=== PATIENT | female | born 1965 | race Caucasian/White ===

== ENCOUNTER 2024-07-13 01:10 | Day surgery (SDC) | payer BC, SELFPAY ==
[2024-07-06 11:28] VITALS: BMI 34.1
--- OUTSIDE RECORDS SUMMARY | 2024-07-13 01:12 | XMS_ITS | Clinical Summary ---
Author Organization [facility] Address [address] [address] Phone Care Team Providers Care Lending Activities Supervisor Name Role Phone Sujata Chau MD Primary Care Provider Social History Tobacco Use Types Packs/Day Years Used Date Smoking Tobacco: Never Assessed Comments Unknown Sex and Gender Information Value Date Recorded Sex Assigned at Not on file Legal Sex Female 12:07 AM CDT Gender Identity Not on file Sexual Orientation Not on file Plan of Treatment Health Maintenance Due Date Last Done Comments Hepatitis C Virus (HCV) Screening 1965 TdaP Immunization 1965 Hepatitis B Immunization (1 of 3 - 19+ 3-dose series) 1984 Pap Smear 1986 Cervical Cancer Screening (CCS) 08/26/1995 HPV/Cotest 08/26/1995 Cologuard 08/26/2015 Immunochemical Fecal Occult Blood 08/26/2015 Mammogram 08/26/2015 Pneumococcal Immunization (5 0+ years) (1 of 1 - PCV) 08/26/2015 Zoster Immunization (1 of 2) 08/26/2015 Colonoscopy 08/05/2023 08/04/2018 Colorectal Cancer Screening 08/05/2023 Influenza Immunization (#1) 2023 SARS-COV-2 Immunization ( season) 2023 Respiratory Syncytial Virus (RSV) Immunization (Adult) (1 - 1-dose 75+ series) 2040 08/04/2018 Meningococcal Immunization (ACWY) Aged Out No longer eligible based on patient's age to complete this topic Pneumococcal Immunization Combined Aged Out No longer eligible based on patient's age to complete this topic Rotavirus Immunization Aged Out No lo nger eligible based on patient's age to complete this topic Procedures Procedure Name Priority Date/Time Associated Diagnosis Comments COLONOSCOPY Routine 08/04/2018 from Last 3 Months or Most Recently Relevant to Health Maintenance Results * COLONOSCOPY (08/04/2018) Robbi Juan Jose Alejandra DO PROCEDURE/MINOR SURGICAL ORDERA BLES Final Result from Last 3 Months or Most Recently Relevant to Health Maintenance Insurance Care Teams Lending Activities Supervisor Relationship Specialty Start Date End Date Sujata Chau MD PCP - General Family Medicine 03/18/18
--- OUTSIDE RECORDS SUMMARY | 2024-07-13 01:12 | XMS_ITS | Encounter Summary ---
Author Organization [facility] Healthcare Address [address] [place] [id number] Care Team Providers Care Medical Support Specialist Name Role Phone Unknown, Notinfile Primary Care Provider Unavail able Encounter Details Date Type Department Care Team (Late st Contact Info) Description 06/22/2024 Results Follow-Up [facility] Medical Group [facility] Care at [address] [phone] Santos Kowalski NP [address] [place] [address] [address] [place] [address] Social History Tobacco Use Types Packs/Day Years Used Date Smoking Tobacco: Never Passive Smoke Exposure: Never Smokeless Tobacco: Never Comments Unknown Sex and Gender Information Value Date Recorded Sex Assigned at Not on file 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 Pt verbalized understanding. * Result Encounter Note - Santos Kowalski NP - 06/22/2024 7:48 AM CDT Please alert patient of negative throat culture. Patient should f/u with PCP if symptoms persist past 10-14 days or worsen at anytime. documented in this encounter Plan of Treatment Not on file documented as of this encounter Visit Diagnoses Not on filedocumented in this encounter Care Teams Medical Support Specialist Relationship Specialty Start Date End Date Unknown, Notinfile PCP - General 06/20/24 documented as of this encounter
--- OUTSIDE RECORDS SUMMARY | 2024-07-13 01:12 | XMS_ITS | Clinical Summary ---
Author Organization [address] Address [address] [place] [id number] Care Team Providers Care Ux Designer Name Role Phone Unknown, Notinfile Primary Care Provider Unavail able Allergies No known active allergies Medications benzonatate (TESSALON) 200 mg capsuleIndicati ons:Acute cough Take 1 capsule (200 mg total) by mouth 3 (three) times a day as needed for cough for up to 7 days 20 capsule 06/20/2024 06/28/19 25 nystatin 100,000 unit/mL suspensionIndic ations:Thrush Take 5 mL (500,000 Units total) by mouth 4 (four) times a day for 7 days Swish in mouth and swallow. 140 mL 06/20/2024 06/28/19 25 Active Problems No known active problems Encounters Date Type Department Care Team Description 06/22/2024 Results Follow-Up [facility] Care at [address] [phone] Santos Kowalski NP 06/20/2024 6:44 PM CDT - 06/20/2024 11:59 PM CDT Hospital Encounter [address] [address] Sore throat Discharge Disposition: Discharge to home or self care 06/20/2024 6:30 PM CDT Office Visit [facility] Care at [address] [phone] Niurka Poon NP Sore throat (Primary Dx); Thrush; Acute cough from Last 3 Months Social History Tobacco Use Types Packs/Day Years Used Date Smoking Tobacco: Never Passive Smoke Exposure: Never Smokeless Tobacco: Never Comments Unknown Sex and Gender Information Value Date Recorded Sex Assigned at Not on file 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 Gender Identity Not on file Sexual Orientation Not on file Obstetrics History Last Filed Vital Signs Vital Sign Reading Time Taken Comments Blood Pressure 137/87 06/20/2024 6:24 PM CDT Pulse 78 06/20/2024 6:24 PM CDT Temperature 36.9 C (98.5 F) 06/20/2024 6:24 PM CDT Respiratory Rate 18 06/20/2024 6:24 PM CDT Oxygen Saturation 98% 06/20/2024 6:24 PM CDT Inhaled Oxygen Concentration - - Weight 94.3 kg (208 lb) 06/20/2024 6:24 PM CDT Height 165.1 cm (5' 5 ) 06/20/2024 6:24 PM CDT Body Mass Index 34.61 06/20/2024 6:24 PM CDT Plan of Treatment Health Maintenance Due Date Last Done Comments Cervical Cancer Screening 1965 Colon Cancer Screening-Colonoscopy 1965 Depression Screening 1965 Hepatitis C Screening 1965 Hepatitis B Screening 08/26/1983 Regular Well Visit/Exam 18-64 08/26/1983 Zoster Vaccine (1 of 2) 08/26/2015 Breast Cancer Screening-Mammogram 01/19/2025 01/20/2024, 01/20/2024, 03/28/2018 DTaP/Tdap/Td Vaccine (3 - Td or Tdap) 01/20/2031 01/20/2021, 12/27/2011 Covid-19 Vaccine Completed 02/17/2024, , 02/18/2021, Additional history exists Influenza Vaccine Completed 02/17/2024, , 01/03/2021, Additional history exists Pneumococcal vaccine <65 Aged Out No longer eligible based on patient's age to complete this topic Procedures Procedure Name Priority Date/Time Associated Diagnosis Comments THROAT CULTURE Routine 06/20/2024 6:44 PM CDT Sore throat POCT RAPID STREP Routine 06/20/2024 6:39 PM CDT Sore throat from Last 3 Months Results * Throat culture Throat (06/20/2024 6:44 PM CDT) Report Final Report: No growth of pathogens. Comment:Testing performed by : [facility], [address], [place]., [address] Throat 06/20/2024 6:44 PM CDT 06/21/2024 6:57 AM CDT Narrative KRISH Mabry 06/22/2024 6:40 AM CDT Testing performed by [facility] Microbiology Laboratory ([phone]). Niurka Poon NP LAB MICROBIOLOGY - GENERAL ORDERABLES Final Result KR[facility] [id number] [facility] [place] [address] * POCT rapid strep A (06/20/2024 6:39 PM CDT) Rapid Strep A, POC Negative Negative Swab 06/20/2024 6:39 PM CDT Niurka Poon NP POINT OF CARE TEST ORDERAB LES Final Result from Last 3 Months Insurance [facility] Care Teams Ux Designer Relationship Specialty Start Date End Date Unknown, Notinfile PCP - General 06/20/24
--- OUTSIDE RECORDS SUMMARY | 2024-07-13 01:12 | XMS_ITS | Clinical Summary ---
Author Organization [facility] Address [address] [place] [address] Care Team Providers Care Associate Financial Representative Name Role Phone Sujata Chau MD Primary Care Provider Source Comments [facility],non-owned Affiliates and Associated Physician Practices is amultiple site organization consisting of ambulatory clinics and hospital sitesin [place], [place], [place] and [place]. This disclosure is being madepursuant to the Care Everywhere program and may not contain all information available regarding this patient. Last updated 17.[facility] Allergies No known active allergies Medications * Be aware that medications may not be up to date on this document. Alwaysverify current medications with the patient. No known medications Encounters Date Type Department Care Team Description 06/09/2024 3:00 PM CDT - 06/09/2024 11:59 PM CDT Hospital Encounter [address] [address] Discharge Disposition: Home or Self Care 06/09/2024 Travel 05/07/2024 10:20 AM FURNITURE MOVER DRIVER - 05/07/2024 11:59 PM FURNITURE MOVER DRIVER Hospital Encounter [address] [address] Brenda Chau MD Discharge Disposition: Home or Self Care 05/07/2024 8:39 AM FURNITURE MOVER DRIVER - 05/07/2024 10:19 AM FURNITURE MOVER DRIVER Hospital Encounter [address] [address] Brenda Chau MD Discharge Disposition: Home or Self Care 05/07/2024 8:38 AM FURNITURE MOVER DRIVER Hospital Encounter [facility] [place] [address] [place] [address] Brenda Chau MD Discharge Disposition: Home or Self Care 05/07/2024 Travel from Last 3 Months Social History Tobacco Use Types Packs/Day Years Used Date Smoking Tobacco: Never Assessed Comments No Sex and Gender Information Value Date Recorded Sex Assigned at Not on file Legal Sex Female 5:19 PM FURNITURE MOVER DRIVER Gender Identity Not on file Sexual Orientation Not on file Last Filed Vital Signs Vital Sign Reading Time Taken Comments Blood Pressure - - Pulse - - Temperature - - Respiratory Rate - - Oxygen Saturation - - Inhaled Oxygen Concentration - - Weight 92.1 kg (203 lb) 01/20/2024 4:15 PM CDT Height 165.1 cm (5' 5 ) 01/20/2024 4:15 PM CDT Body Mass Index 33.78 01/20/2024 4:15 PM CDT Plan of Treatment Health Maintenance Due Date Last Done Comments COLOGUARD (AGES 45-75) - COL ON CA SCREENING 1965 COLON MONITORING 1965 COLONOSCOPY - COLON CA SCREENING 1965 CT COLONOGRAPHY - COLON CA SCREENING 1965 Colorectal Cancer Screening 1965 FIT - COLON CA SCREENING 1965 FLEX SIG - COLON CA SCREENING 1965 LIPID TESTING 1965 PAP SMEAR 1965 HIV SCREENING 1980 HEPATITIS C SCREENING 08/21/1983 DTAP/TDAP/TD VACCINES (1 - Tdap) 1984 HEPATITIS B VACCINE (1 of 3 - 19+ 3-dose series) 1984 PNEUMOCOCCAL VACCINE 50+ (1 of 1 - PCV) 08/26/2015 ZOSTER VACCINE (1 of 2) 08/26/2015 COVID-19 VACCINE (1 - 2023-2 5 season) 2023 DEPRESSION SCREENING 04/01/2024 INFLUENZA VACCINE (Season Ended) 2024 MAMMOGRAM 01/19/2026 01/20/2024, 03/28/2018, 02/08/2017 HIB VACCINE Aged Out No longer eligi ble based on patient's age to complete this topic HPV VACCINE Aged Out No longer eligi ble based on patient's age to complete this topic MENINGOCOCCAL (Group B) VACCINE SHARED DECISION-MAKING Aged Out No longer eligible based on patient's age to complete this topic MENINGOCOCCAL GROUPS A/C/Y/W VACCINE Aged Out No longer eligible b ased on patient's age to complete this topic Medical Devices Implanted Type Area Supervisor Nut Processing Device Identifier Shelf Expiration Date Model / Serial / Lot [employer]omark Ultra Cor Implanted:Qty: 1 on 05/07/2024 by Anitha Avery MD at [facility] Breast 01/30/2027 [id number] / / [id number] Procedures Procedure Name Priority Date/Time Associated Diagnosis Comments US BREAST LEFT LTD Routine 06/09/2024 4: 12 PM CDT Abnormal ultrasound US BREAST LEFT CYST ASPIRATION Routine 05/07/2024 12:02 PM FURNITURE MOVER DRIVER Abnormal mammogram US BREAST LEFT BIOPSY Routine 05/07/2024 11:54 AM FURNITURE MOVER DRIVER Abnormal mammogram MAMMO LEFT POST CLIP OR WIRE W MARVIN Routine 05/07/2024 10:32 AM FURNITURE MOVER DRIVER Abnormal mammogram PATHOLOGY TISSUE Routine 05/07/2024 9:15 AM FURNITURE MOVER DRIVER Abnormal mammogram MAMMO BILAT SCREENING W MARVIN Routine 01/20/2024 4:14 PM CDT Breast cancer screening by mammogram from Last 3 Months or Most Recently Relevant to Health Maintenance Results * US Breast Left Ltd (06/09/2024 4:12 PM CDT) Anatomical Region Laterality Modality Breast Left Mammography 06/09/2024 3:53 PM CDT Impressions 06/10/2024 7:55 AM CDT IMPRESSION: Interval reaccumulation of the heterogeneous component of a previously characterized complex cystic and solid at the 7:00 position 1 cm from the nipple which is similar in size compared to prebiopsy imaging, now measuring 1.7 x 1.5 x 1.5 cm (previously 1.6 x 1.5 x 1.4 cm). Differential considerations continue to include chronic indolent/sterile abscess. RECOMMENDATION: Given the fact this area continues to be recurrent with multiple biopsies outer this or in the general vicinity of this area demonstrating benign pathology but that suggesting possible chronic indolent hemorrhage/abscess, breast surgery consultation is recommended. Further imaging follow-up and management decisions regarding the subareolar left breast mass to be decided pending breast surgery consultation appointment. The patient is next due for bilateral mammography in December 2024, pending no interval breast changes. OVERALL ASSESSMENT: BI-RADS CATEGORY 2: BENIGN. Dictated and interpreted by Abdulaziz Castro MD (assistant vice president). I, Jenna Lopez DO have personally reviewed and interpreted this examination/study. > Interpreting Provider: Jenna Lopez DO on 06/10/2024 7:55 AM Narrative 06/10/2024 7:55 AM CDT EXAMINATION: US BREAST LEFT COMPLETE DATE: 06/09/2024 HISTORY: Four-week follow-up status post biopsy of a complex cystic and solid yielding columnar cell lesion with microcalcifications in usual ductal hyperplasia. Apocrine cysts with hemorrhage an abscess, small area of abscess could be related to prior hemorrhage/prior history of biopsy. No atypia or malignancy. Of note, the patient has had this region of the breast biopsied several times in the past, all with benign pathology also suggesting possible chronic abscess or hemorrhage (mostly performed at [facility] with pathology reports not available) note is also made that the area significantly decreased in size at the time of biopsy. The patient denies known history of diabetes and is a nonsmoker. Of note, the patient remains asymptomatic in relationship to the mass. COMPARISON: Prior breast imaging studies back to 2017. Correlated with most recent mammogram and ultrasound dated 05/07/2024. TECHNIQUE: Targeted left breast ultrasound of the patient's previous biopsy site at the 7:00 position, 1 cm from the nipple. TISSUE COMPOSITION: Heterogeneous background echotexture. FINDINGS: Redemonstration of a complex cystic and solid mass at the 7:00 position, 1 cm from nipple. Compared to postbiopsy ultrasound there has been reaccumulation of the heterogeneous component of the mass. The mass measures 1.7 x 1.5 x 1.5 cm, previously 1.6 x 1.5 x 1.4 cm on prebiopsy examination. There is suggestion of mild peripheral vascularity. This is not tender to the patient and there is no overlying skin erythema, warmth and the patient denies fever. Sujata Chau MD US ORDERABLES Final Result * US Breast Left Cyst Aspiration (05/07/2024 12:02 PM FURNITURE MOVER DRIVER) Anatomical Region Laterality Modality Breast Left Mammography 05/13/2024 7:26 AM FURNITURE MOVER DRIVER Impressions 05/13/2024 7:31 AM FURNITURE MOVER DRIVER IMPRESSION: Technically successful, uncomplicated ultrasound-guided aspiration performed of a 1 cm cyst in the 10 o'clock position, 4 cm from the nipple of the LEFT breast with complete collapse of the cyst. RECOMMENDATION: Please refer to separate ultrasound biopsy report same day of the left breast 7:[address] Avery discussed the exam findings with the patient at the time of the procedure. > Interpreting Provider: Anitha Avery MD, FACR on 05/13/2024 7:31 AM Narrative 05/13/2024 7:31 AM FURNITURE MOVER DRIVER EXAM: ULTRASOUND-GUIDED CYST ASPIRATION- LEFT BREAST LOCATION: [facility] EXAM DATE: 05/07/2024 HISTORY: 1.1 cm hypoechoic mass in the left breast 10:00 region, 4 cm from nipple. Please refer to separate biopsy report same day. COMPARISON: Mammogram 01/20/2024 and ultrasound 03/19/2024. INTERPRETATION: Preprocedure images were reviewed. The procedure and its risks and benefits were discussed with the patient, including, but not limited to infection and allergy. Written and verbal informed consent was obtained and documented. After confirming the correct breast for aspiration, the breast was marked with a marking pen. The patient was then placed in a supine position on the ultrasound table. Prior to the procedure, a hospital timeout procedure was performed, including verification of the laterality of the breast for aspiration. The 1.1 cm cyst in the 10 o'clock position, 4 cm from the nipple was localized with ultrasound guidance. The breast was cleansed with Chloraprep and draped in a sterile fashion. Using sterile technique and after 4 cc of 1% Lidocaine with Sodium Bicarbonate was given for local anesthesia, the cyst was punctured with a 20-gauge hypodermic needle under ultrasound guidance. 1 cc of clear, colorless fluid was obtained. There was complete collapse of the cyst. The patient tolerated the procedure without incident and left the department in good condition. Estimated blood loss: Minimal A Band-Aid was placed over the skin puncture site. The patient tolerated the procedure without incident and left the department in good condition. The attending physician, Anitha Avery MD, was present for and performed the entire procedure. Sujata Chau MD US ORDERABLES Final Result * US Breast Left Biopsy (05/07/2024 11:54 AM FURNITURE MOVER DRIVER) Anatomical Region Laterality Modality Breast Left Mammography Biopsy specimen, unspecified 05/07/2024 10:37 AM FURNITURE MOVER DRIVER Addenda Addendum by Anitha Avery MD on 05/08/2024 1:35 PM FURNITURE MOVER DRIVER ADDENDUM: PATHOLOGY RESULTS LOCATION: [facility] DATE OF ADDENDUM: 05/08/[address] Sandy Puri from biopsy of the left breast performed by Dr. Avery demonstrates columnar cell lesion with microcalcifications in usual ductal hyperplasia. Apocrine cysts with hemorrhage and abscess. Per discussion with Dr. Puri, small area with neutrophils (abscess) noted and could be related to prior hemorrhage/prior history of biopsy. There is no atypia or malignancy. Of note, at the time of the biopsy patient was asymptomatic with respect to the left breast without signs of infection or abscess. This is a benign lesion. The pathology report is concordant with the imaging findings. Recommendation: 1. Clinical follow-up of patient's left breast to assess for any developing signs of infection. If patient were to develop any erythema, pain, or signs of breast infection, then initiation of antibiotics and breast surgical consultation is recommended. Of note, at the time of the biopsy patient was asymptomatic with respect to the left breast, without signs or symptoms of infection. 2. Pending no interval breast concerns, follow-up left breast ultrasound is recommended in 4 weeks to reassess the biopsy site. Our nurse navigator will notify the patient of the biopsy findings and recommendations. Pathology report available for the referring provider via [employer]. > Interpreting Provider: Anitah Avery MD, FACR on 05/08/2024 1:33 PM Impressions 05/07/2024 11:40 AM FURNITURE MOVER DRIVER IMPRESSION: 1. Technically successful, uncomplicated ultrasound-guided core biopsy performed of a 2.5 cm complex cystic and solid mass in the left breast, 7:00 region, 1 cm from the nipple. Of note, the mass became significantly smaller after the biopsy. Please refer to separate report for left breast cyst aspiration same day. 2. A heart -shaped tissue marker was placed at the biopsy site. The tissue marker is in good position at the biopsy site. 3. Pathology results are pending. We will notify the patients of the pathology findings and recommendations. An addendum will be rendered to this report when the pathology results are made available. Report dictated by Olaf Barnes M.D. (assistant vice president). I, Anitha Avery MD, FACR have personally reviewed and interpreted this examination/study. > Interpreting Provider: Anitha Avery MD, FACR on 05/07/2024 11:40 AM Narrative 05/07/2024 11:40 AM FURNITURE MOVER DRIVER EXAM: 1. ULTRASOUND-GUIDED LEFT BREAST BIOPSY AND 2. POST BIOPSY DIGITAL MAMMOGRAM WITH TOMOSYNTHESIS LEFT BREAST (COMBINED REPORT) LOCATION: [facility] EXAM DATE: 05/07/2024 CLINICAL INFORMATION: Biopsy requested of a 2.5 cm mass in the leftbreast, 7:00 region, 1 cm from the nipple. A 1.6 cm complex solid and cystic mass was noted in the left breast 7:00 region, 1 cm from the nipple on prior ultrasound and is at low suspicion for malignancy. Patient also presenting for aspiration of a 1.1 cm oval anechoic mass in the left breast 7:00 region, 6 cm from the nipple and please refer to that separate report. Patient has remote history of ultrasound-guided core biopsy in the subareolar left breast. COMPARISON: Prior breast imaging studies from [facility], dated 03/19/2024. Also compare with prior outside studies back to 2017. TECHNIQUE AND FINDINGS: Preprocedure images were reviewed. The procedure and its risks and benefits were discussed with the patient, including, but not limited to, bleeding, infection, allergy, and nondiagnostic specimen. Written and verbal informed consent was obtained and documented. After confirming the correct breast for biopsy, the breast was marked with a marking pen. The patient was then placed in a supine position on the ultrasound table. Prior to the procedure a hospital timeout procedure was performed, including verification of the laterality of the breast for biopsy. Ultrasound was performed for location of the lesion. The 2.5 cm mass in the breast, 7:00, 1 cm from the nipple, was localized with ultrasound guidance. The breast was cleansed with ChloraPrep and draped in a sterile fashion. Local anesthesia was given with 4 cc of 1% Lidocaine, buffered with Sodium Bicarbonate within the skin and deeper anesthesia with 14 cc of 1% Lidocaine with Epinephrine, buffered withSodium Bicarbonate. A small skin incision was made with a #11 scalpel blade, and through it a 12-gauge Elevation with an introducer was inserted to the depth of the lesion from a lateral approach. 4 biopsy samples were obtained through the lesion. Of note, the mass cannot significantly smaller than the biopsy and this may represent a complicated fluid structure. A heart -shaped tissue marker was placed at the biopsy site and a post biopsy sonogram demonstrated no evidence for hematoma about the biopsy site. Hemostasis was achieved, and the small wound was closed with Exofin. Estimated blood loss: Minimal The tissue samples were placed in formalin and delivered to the pathology department by the technologist. Mammogram: A two-view left mammogram with tomosynthesis (3D) and reconstructed C-view( 2D) images with CC and true lateral projections was obtained to check clip placement. Breast Composition: Category C: The breasts are heterogeneously dense which may obscure small masses. heart -shaped tissue marker. The tissue marker is in good position at the biopsy site. ASSESSMENT: POSTPROCEDURE MAMMOGRAM FOR MARKER PLACEMENT The patient tolerated the procedure well, with no immediate post biopsy complications. The patient was given verbal, as well as written postprocedure instructions (including Exofin instructions) and was released from the department in good condition. The attending physician, Anitha Avery MD, was present for and supervised the entire procedure. us Sujata Chau MD ORDERABLES Edited Result - Final * Mammo Left Post Clip or Wire W Marvin (05/07/2024 10:32 AM FURNITURE MOVER DRIVER) Anatomical Region Laterality Modality Breast Left Mammography 05/07/2024 10:3 7 AM FURNITURE MOVER DRIVER Addenda Addendum by Anitha Avery MD on 05/08/2024 1:35 PM FURNITURE MOVER DRIVER ADDENDUM: PATHOLOGY RESULTS LOCATION: [facility] DATE OF ADDENDUM: 05/08/[address] Sandy Puri from biopsy of the left breast performed by Dr. Bennie demonstrates columnar cell lesion with microcalcifications in usual ductal hyperplasia. Apocrine cysts with hemorrhage and abscess. Per discussion with Dr. Puri, small area with neutrophils (abscess) noted and could be related to prior hemorrhage/prior history of biopsy. There is no atypia or malignancy. Of note, at the time of the biopsy patient was asymptomatic with respect to the left breast without signs of infection or abscess. This is a benign lesion. The pathology report is concordant with the imaging findings. Recommendation: 1. Clinical follow-up of patient's left breast to assess for any developing signs of infection. If patient were to develop any erythema, pain, or signs of breast infection, then initiation of antibiotics and breast surgical consultation is recommended. Of note, at the time of the biopsy patient was asymptomatic with respect to the left breast, without signs or symptoms of infection. 2. Pending no interval breast concerns, follow-up left breast ultrasound is recommended in 4 weeks to reassess the biopsy site. Our nurse navigator will notify the patient of the biopsy findings and recommendations. Pathology report available for the referring provider via [employer]. > Interpreting Provider: Anitha Avery MD, FACR on 05/08/2024 1:33 PM Impressions 05/07/2024 11:40 AM FURNITURE MOVER DRIVER IMPRESSION: 1. Technically successful, uncomplicated ultrasound-guided core biopsy performed of a 2.5 cm complex cystic and solid mass in the left breast, 7:00 region, 1 cm from the nipple. Of note, the mass became significantly smaller after the biopsy. Please refer to separate report for left breast cyst aspiration same day. 2. A heart -shaped tissue marker was placed at the biopsy site. The tissue marker is in good position at the biopsy site. 3. Pathology results are pending. We will notify the patients of the pathology findings and recommendations. An addendum will be rendered to this report when the pathology results are made available. Report dictated by Olaf Barnes M.D. (assistant vice president). I, Anitha Avery MD, FACR have personally reviewed and interpreted this examination/study. > Interpreting Provider: Anitha Avery MD, FACR on 05/07/2024 11:40 AM Narrative 05/07/2024 11:40 AM FURNITURE MOVER DRIVER EXAM: 1. ULTRASOUND-GUIDED LEFT BREAST BIOPSY AND 2. POST BIOPSY DIGITAL MAMMOGRAM WITH TOMOSYNTHESIS LEFT BREAST (COMBINED REPORT) LOCATION: [facility] EXAM DATE: 05/07/2024 CLINICAL INFORMATION: Biopsy requested of a 2.5 cm mass in the leftbreast, 7:00 region, 1 cm from the nipple. A 1.6 cm complex solid and cystic mass was noted in the left breast 7:00 region, 1 cm from the nipple on prior ultrasound and is at low suspicion for malignancy. Patient also presenting for aspiration of a 1.1 cm oval anechoic mass in the left breast 7:00 region, 6 cm from the nipple and please refer to that separate report. Patient has remote history of ultrasound-guided core biopsy in the subareolar left breast. COMPARISON: Prior breast imaging studies from [facility], dated 03/19/2024. Also compare with prior outside studies back to 2017. TECHNIQUE AND FINDINGS: Preprocedure images were reviewed. The procedure and its risks and benefits were discussed with the patient, including, but not limited to, bleeding, infection, allergy, and nondiagnostic specimen. Written and verbal informed consent was obtained and documented. After confirming the correct breast for biopsy, the breast was marked with a marking pen. The patient was then placed in a supine position on the ultrasound table. Prior to the procedure a hospital timeout procedure was performed, including verification of the laterality of the breast for biopsy. Ultrasound was performed for location of the lesion. The 2.5 cm mass in the breast, 7:00, 1 cm from the nipple, was localized with ultrasound guidance. The breast was cleansed with ChloraPrep and draped in a sterile fashion. Local anesthesia was given with 4 cc of 1% Lidocaine, buffered with Sodium Bicarbonate within the skin and deeper anesthesia with 14 cc of 1% Lidocaine with Epinephrine, buffered withSodium Bicarbonate. A small skin incision was made with a #11 scalpel blade, and through it a 12-gauge Elevation with an introducer was inserted to the depth of the lesion from a lateral approach. 4 biopsy samples were obtained through the lesion. Of note, the mass cannot significantly smaller than the biopsy and this may represent a complicated fluid structure. A heart -shaped tissue marker was placed at the biopsy site and a post biopsy sonogram demonstrated no evidence for hematoma about the biopsy site. Hemostasis was achieved, and the small wound was closed with Exofin. Estimated blood loss: Minimal The tissue samples were placed in formalin and delivered to the pathology department by the technologist. Mammogram: A two-view left mammogram with tomosynthesis (3D) and reconstructed C-view( 2D) images with CC and true lateral projections was obtained to check clip placement. Breast Composition: Category C: The breasts are heterogeneously dense which may obscure small masses. heart -shaped tissue marker. The tissue marker is in good position at the biopsy site. ASSESSMENT: POSTPROCEDURE MAMMOGRAM FOR MARKER PLACEMENT The patient tolerated the procedure well, with no immediate post biopsy complications. The patient was given verbal, as well as written postprocedure instructions (including Exofin instructions) and was released from the department in good condition. The attending physician, Anitha Avery MD, was present for and supervised the entire procedure. Procedure Note Anitha Avery MD - 05/07/2024 EXAM: 1. ULTRASOUND-GUIDED LEFT BREAST BIOPSY AND 2. POST BIOPSY DIGITAL MAMMOGRAM WITH TOMOSYNTHESIS LEFT BREAST(COMBINED REPORT) LOCATION: [facility] EXAM DATE: 05/07/2024 CLINICAL INFORMATION: Biopsy requested of a 2.5 cm mass in theleftbreast, 7:00 region, 1 cm from the nipple. A 1.6 cm complex solid and cysticmass was noted in the left breast 7:00 region, 1 cm from the nipple on prior ultrasound and is at low suspicion for malignancy. Patient alsopresenting for aspiration of a 1.1 cm oval anechoic mass in the left breast 7:00 region, 6 cm from the nipple and please refer to that separate report. Patient has remote history of ultrasound-guided core biopsy in the subareolar left breast. COMPARISON: Prior breast imaging studies from [facility],dated 03/19/2024. Also compare with prior outside studies back to 2017. TECHNIQUE AND FINDINGS: Preprocedure images were reviewed. The procedure and its risks and benefits were discussed with the patient, including,but not limited to, bleeding, infection, allergy, and nondiagnosticspecimen. Written and verbal informed consent was obtained and documented. After confirming the correct breast for biopsy, the breast was markedwith a marking pen. The patient was then placed in a supine position on the ultrasound table. Prior to the procedure a hospital timeout procedurewas performed, including verification of the laterality of the breast for biopsy. Ultrasound was performed for location of the lesion. The 2.5 cm mass inthe breast, 7:00, 1 cm from the nipple, was localized with ultrasound guidance. The breast was cleansed with ChloraPrep and draped in asterile fashion. Local anesthesia was given with 4 cc of 1% Lidocaine, buffered with Sodium Bicarbonate within the skin and deeper anesthesia with 14cc of 1% Lidocaine with Epinephrine, buffered withSodium Bicarbonate. A small skin incision was made with a #11 scalpel blade, and through it a 12-gauge Elevation with an introducer was inserted to the depth of the lesion from a lateral approach. 4 biopsy samples were obtained throughthe lesion. Of note, the mass cannot significantly smaller than the biopsyand this may represent a complicated fluid structure. A heart -shaped tissue marker was placed at the biopsy site and a post biopsy sonogram demonstrated no evidence for hematoma about the biopsy site. Hemostasis was achieved, and the small wound was closed with Exofin. Estimated blood loss: Minimal The tissue samples were placed in formalin and delivered to thepathology department by the technologist. Mammogram: A two-view left mammogram with tomosynthesis (3D) and reconstructed C-view( 2D) images with CC and true lateral projectionswas obtained to check clip placement. Breast Composition: Category C: The breasts are heterogeneously densewhich may obscure small masses. heart -shaped tissue marker. The tissue marker is in good position atthe biopsy site. ASSESSMENT: POSTPROCEDURE MAMMOGRAM FOR MARKER PLACEMENT The patient tolerated the procedure well, with no immediate post biopsy complications. The patient was given verbal, as well as written postprocedure instructions (including Exofin instructions) and wasreleased from the department in good condition. The attending physician, Anitha Avery MD, was present for andsupervised the entire procedure. IMPRESSION: 1. Technically successful, uncomplicated ultrasound-guided core biopsy performed of a 2.5 cm complex cystic and solid mass in the left breast, 7:00 region, 1 cm from the nipple. Of note, the mass becamesignificantly smaller after the biopsy. Please refer to separate report for leftbreast cyst aspiration same day. 2. A heart -shaped tissue marker was placed at the biopsy site. Thetissue marker is in good position at the biopsy site. 3. Pathology results are pending. We will notify the patients of the pathology findings and recommendations. An addendum will be rendered to this report when the pathology results are made available. Report dictated by Olaf Barnes M.D. (assistant vice president). I, Anitha Avery MD, FACR have personally reviewed and interpretedthis examination/study. > Interpreting Provider: Anitha Avery MD, FACR on 05/07/2024 11:40 AM Sujata Chau MD MAMMO ORDERABLES Edite d Result - Final * PATHOLOGY TISSUE (05/07/2024 9:15 AM [facility]) Case Report Surgical Pathology Report Case: [id number] Authorizing Provider: Sujata Chau, Collected: 05/07/2024 09:15 AM Ordering Location: [facility] BREAST Received: 05/07/2024 01:28 PM CENTER Pathologist: Sandy Puri MD Specimen: Breast, Left, 2.5 cm complex cystic and solid mass. Subareolar, 7:00, 1 cm from nipple 05/08/2024 9:17 AM [facility] Final Diagnosis Breast, left mass, subareolar, 7:00, 1 cm from nipple, ultrasound-guided core biopsy: - Columnar cell lesion with calcifications and usual ductal hyperplasia - Apocrine cysts with hemorrhage and abscess - No atypical hyperplasia or malignancy 05/08/2024 9:17 AM [facility] Microscopic Description and Comment Microscopic examination substantiates the above captioned diagnosis. 05/08/2024 9:17 AM [facility] Clinical History 58-year-old woman with a 1 cm mass of the left breast, 7:00, 6 cm from the nipple. BI-RADS Category 4A 05/08/2024 9:17 AM [facility] Gross Description The requisition and specimen(s) are identified with the patient's name, Valeria Salter. Received in formalin, specimen A , is a 2.0 x 1.5 x 0.3 cm aggregate of saravia-white to yellow lobulated tissue fragments, red-brown clot and saravia-brown granular material, submitted in toto in cassette A1. Specimen processing times on 05/07/2024 are as follows: Time of excision: 915 Time specimen is placed in formalin: 925 Total formalin fixation time: 8 hours End time 1720 Total cold ischemia time: 10 minutes IKD 05/08/2024 9:17 AM [facility] Pathologist Location at [facility] 05/08/2024 9:17 AM [facility] Disclaimer The performance characteristics of all immunohistochemical and indirect immunofluorescence stains (if any) cited in this report were determined by the Histopathology Laboratory of [facility]. Some of these tests were developed by our own laboratory and have not been cleared or approved by the US Food and Drug Administration. The FDA does not require this test to go through premarket FDA review. These tests are used for clinical purposes. They should not be regarded as investigational or for research. This laboratory is certified under the Clinical Laboratory Improvement Amendments (CLIA) as qualified to perform high complexity clinical laboratory testing. This case has been personally reviewed and interpreted by the attending (teaching) pathologist. 05/08/2024 9:17 AM [facility] Collected By Anitha Avery MD 09/2024 9:17 AM [facility] Embedded Images 05/08/2024 9:17 AM [facility] Pathology/Cytolo gy (Breast, Left) 05/07/2024 9:15 AM [employer] 05/07/2024 1:28 PM [employer] Sujata Chau MD LAB - PATHOLOGY/CYTOLO GY ORDERABLES Final Result Performing Organization Address City/State/[facility] Co de Phone Number [facility] [address] [phone] * Mammo Bilat Screening W Marvin (01/20/2024 4:14 PM CDT) Anatomical Region Laterality Modality Breast Bilateral Mammography 01/20/2024 4:57 PM CDT Impressions 01/20/2024 5:04 PM CDT IMPRESSION: 1. A 1 cm circumscribed mass in the upper inner quadrant of the left breast, mid depth. 2. Bilateral mammogram is otherwise benign. RECOMMENDATION: Left breast ultrasound. If indicated at that time, diagnostic left mammogram will be performed. Patient will be contacted and scheduled to return for the additional imaging. OVERALL ASSESSMENT: BI-RADS CATEGORY 0: INCOMPLETE: NEED ADDITIONAL IMAGING EVALUATION. > Interpreting Provider: Anitha Avery MD, FACR on 01/20/2024 5:04 PM Narrative 01/20/2024 5:04 PM CDT EXAMINATIONS: BILATERAL DIGITAL SCREENING MAMMOGRAM AND BILATERAL BREAST TOMOSYNTHESIS LOCATION: [facility] EXAM DATE: 01/20/2024 HISTORY: Screening. No family history of breast cancer. History of benign breast cysts bilaterally. RISK ASSESSMENT CALCULATION: Patient completed a breast cancer risk assessment during her appointment 01/20/2024. Based upon the information she provided and her mammographic breast density, her lifetime risk of developing breast cancer is 11 % (Average Risk <15%; Intermediate / Moderate Risk 15-19; High Risk > 20%). Risk assessment based upon the Tyrer-Cuzick v8 model. COMPARISON: Comparison is made to prior mammograms back to 2015, with the most recent dated 03/28/2018. TECHNIQUE: Tomosynthesis (3D) and reconstructed synthetic 2-D images acquired and reviewed in the bilateral craniocaudal and mediolateral oblique projections. A total of 5 images obtained. Mole markers placed on both breasts. Transpara AI was utilized in the interpretation. BREAST PARENCHYMAL COMPOSITION: Category C: The breasts are heterogeneously dense which may obscure small masses. FINDINGS: Right breast: No suspicious findings or evidence of malignancy. No change from the prior studies. Left breast: There is approximately 1 cm rounded circumscribed mass in the upper inner quadrant of the breast mid depth, 5 cm from the nipple on the craniocaudal view. This was not noted previously. This likely represents a cyst, given the prior history of multiple bilateral benign breast cysts. There are known cysts in the subareolar breast. 2 tissue markers noted in the breast. Sujata Chau MD MAMMO ORDERABLES Final Result from Last 3 Months or Most Recently Relevant to Health Maintenance Insurance [employer]M Care Teams Associate Financial Representative Relationship Specialty Start Date End Date Sujata Chau MD [address] [place] [address] PCP - General Family Medicine 03/28/18
--- OUTSIDE RECORDS SUMMARY | 2024-07-13 01:12 | XMS_ITS | Referral Summary ---
Author Organization [address] Address [address] [place] [id number] Care Team Providers Care Bookkeeping Assistant Name Role Phone Unknown, Notinfile Primary Care Provider Unavail able Encounters Date Type Department Care Team Description 06/22/2024 Results Follow-Up [facility] at [address] [id number] Santos Kowalski NP 06/20/2024 6:44 PM CDT - 06/20/2024 11:59 PM CDT Hospital Encounter [place] [phone] Sore throat Discharge Disposition: Discharge to home or self care 06/20/2024 6:30 PM CDT Office Visit [facility] at [address] [phone] Niurka Poon NP Sore throat (Primary Dx); Thrush; Acute cough from Last 3 Months Allergies No known active allergies Medications benzonatate [...] 25 Active Problems No known active problems Social History Tobacco Use Types Packs/Day Years Used Date Smoking Tobacco: Never Passive Smoke Exposure: Never Smokeless Tobacco: Never Comments Unknown Sex and Gender Information Value Date Recorded Sex Assigned at Not on file Legal Sex Female 5:48 AM [employer] Gender Identity Not on file Sexual Orientation [...] 06/20/2024 6:24 PM CDT Plan of Treatment Not on file Procedures Procedure Name Priority Date/Time Associated Diagnosis Comments THROAT CULTURE Routine 06/20/2024 6:44 PM CDT Sore throat POCT RAPID STREP Routine 06/20/2024 6:39 PM CDT Sore throat from Last 3 Months Results * Throat culture Throat (06/20/2024 6:44 PM CDT) Report Final Report: No growth of pathogens. Comment:Testing performed by : [facility], [address] [place]., [address] Throat 06/20/2024 6:44 PM CDT 06/21/2024 6:57 AM CDT Narrative KRISH - 06/22/2024 6:40 AM CDT Testing performed by [facility] ([phone]). us Niurka Poon NP LAB MICROBIOLOGY - GENERAL ORDERABLES Final Result [facility] [address] [place] [address] * POCT rapid strep A (06/20/2024 6:39 PM CDT) Rapid Strep A, POC Negative Negative Swab 06/20/2024 6:39 PM CDT Niurka Poon NP POINT OF CARE TEST ORDERAB LES Final Result from Last 3 Months Insurance ANTHEM ACCESS Care Teams Bookkeeping Assistant Relationship Specialty Start Date End Date Unknown, Notinfile PCP - General 06/20/24
[2024-07-13 08:29] VITALS: BP 145/86; PULSE 88; RESP 20; TEMP 36.4; O2SAT 98
[2024-07-13] MEDS: LACTATED RINGERS 1,000 ML 150 ML IV CONT (08:40)
--- NOTE | 2024-07-13 09:23 | P.HP_ITS ---
H&P: HPI History of Present Illness Date/Time: 07/13/24 09:23 Chief Complaint: History of colon polyps Narrative: The patient has a history of colonic polyps, the last colonoscopy was in 2019, finding 2 small tubular adenomas. Review of Systems Review of Systems: All systems reviewed & are unremarkable except as noted in HPI and below [facility] Past Medical History Medical History History of colon polyps Dyslipidemia Surgical History Surgical History History of vaginal delivery x2 - 1987, 1990 History of appendectomy (~1986) Family History Family History Other Hypertension Social History Social History Smoking status: Never smoker Alcohol intake: current Substance use: never Substance use type: does not use Do You Feel Safe in your Home?: Yes Living arrangements: with family Occupation/Education: unemployed Gender identity (if verbalized by the patient): Female Agree to blood products: Yes Meds Home Medications and Allergies Home Medications ?Medication ?Instructions ?Recorded ?Confirmed ?Type atorvastatin 20 mg tablet (Lipitor) 20 mg PO QHS #90 tabs 02/28/24 07/13/24 Rx cholecalciferol (vitamin D3) 1,250 1,250 mcg PO WEEKLY #12 tabs 02/28/24 07/13/24 Rx mcg (50,000 unit) tablet oxybutynin chloride 10 mg 10 mg PO DAILY PRN urine 04/13/24 07/06/24 Rx tablet,extended release 24 hr incontinence #90 tabs Allergies Allergy/AdvReac Type Severity Reaction Status Date / Time No Known Allergies Allergy Verified 07/13/24 08:28 Vital Signs Vital Signs - 24 hr 07/13/24 08:29 Temperature 97.6 F Pulse Rate 88 Respiratory Rate 20 Blood Pressure 145/86 H Pulse Oximetry 98 Oxygen Delivery Room Air Exam Const: General: cooperative and healthy appearing Resp: Effort & Inspection: normal respiratory effort and able to speak in complete sentences Auscultation: clear to auscultation bilaterally Cardio: Rate: regular rate Rhythm: regular rhythm GI: Inspection: normal to inspection GI Palp: No No hepatosplenomegaly present Auscultation: normal bowel sounds Rectal Exam: deferred Skin: General skin exam: normal color Psych: Appearance: grossly normal Mental Status: mental status grossly normal Assessment and Plan Assessment and plan (1) History of colonic polyps: Code(s): Z86.0100 - Personal history of colon polyps, unspecified Status: Acute Assessment and Plan: The patient is deemed a good candidate for the procedure. Consent signed. W ill proceed.
--- NOTE | 2024-07-13 09:29 | P.PNAN_ITS ---
Anes - Initial Pre Proc Eval Procedure: Operation Date: 07/13/24 09:30 Proposed Procedures p Colonoscopy - Tacos Loya MD Date/Time: 07/13/24 09:29 Surgeon: Tacos Loya MD Pre Op Diagnosis: hx of colon polyps Patient Data Age: 58 Gender: F Height: 1.65 m Weight: 91.1 kg Last Vital Signs Temp 97.6 F 07/13/24 08:29 Pulse 88 07/13/24 08:29 Resp 20 07/13/24 08:29 BP 145/86 H 07/13/24 08:29 Pulse Ox 98 07/13/24 08:29 O2 Del Method Room Air 07/13/24 08:29 Allergies Allergy/AdvReac Type Severity Reaction Status Date / Time No Known Allergies Allergy Verified 07/13/24 08:28 Home Medications ?Medication ?Instructions ?Recorded ?Confirmed ?Type atorvastatin 20 mg tablet (Lipitor) 20 mg PO QHS #90 tabs 02/28/24 07/13/24 Rx cholecalciferol (vitamin D3) 1,250 1,250 mcg PO WEEKLY #12 tabs 02/28/24 07/13/24 Rx mcg (50,000 unit) tablet oxybutynin chloride 10 mg 10 mg PO DAILY PRN urine 04/13/24 07/06/24 Rx tablet,extended release 24 hr incontinence #90 tabs Patient hx anesthesia problems: none Family hx anesthesia problems: none Results Review: All pre-operative results and documents have been reviewed as part of the pre- operative evaluation. [facility] Past Medical History Medical History History of colon polyps Dyslipidemia Surgical History Surgical History History of vaginal delivery x2 - 1987, 1990 History of appendectomy (~1986) Family History Family History Other Hypertension Social History Social History Smoking status: Never smoker Alcohol intake: current Substance use: never Substance use type: does not use Do You Feel Safe in your Home?: Yes Living arrangements: with family Occupation/Education: unemployed Gender identity (if verbalized by the patient): Female Agree to blood products: Yes Anes - Eval Final PreProcedure Day of Procedure 07/13/24 09:29 Patient weight: obese Heart: regular rate and rhythm Lungs: clear to auscultation Airway: Mallampati scale class II Neurological: alert and oriented Last oral intake: >/= 8 hours Emergent: no Anesthetic plan: proceed Anesthesia type and monitoring: general GIVS and standard monitoring Results Review: All pre-operative results and documents have been reviewed as part of the pre- operative evaluation. Informed Consent: The patient's anesthetic plan and its attendant risks and benefits were discussed with the patient/family/POA. Questions were solicited and answers provided to the satisfaction of the patient/family/POA.
[2024-07-13 09:49] VITALS: BP 114/65; PULSE 71; RESP 19; O2SAT 97
[2024-07-13 09:59] VITALS: BP 106/52; PULSE 68; RESP 19; O2SAT 96
[2024-07-13 10:09] VITALS: BP 105/56; PULSE 67; RESP 20; O2SAT 97
== END 2024-07-13 10:22 | disposition home or self-care (01) ==
PROVIDERS: PCP Family Medicine; Referring Provider Family Medicine; Visit Provider Internal Medicine Gastroenterology
PROC: 0DJD8ZZ Inspection of Lower Intestinal Tract, Via Natural or Artificial Opening Endoscopic (ICD-10-PCS; CPT 45378; principal; 2024-07-13 09:30)
DX: Z12.11 Encounter for screening for malignant neoplasm of colon (principal); K63.5 Polyp of colon; K57.30 Diverticulosis of large intestine without perforation or abscess without bleeding; E66.9 Obesity, unspecified; Z68.33 Body mass index [BMI] 33.0-33.9, adult
CPT/HCPCS: 45385; 88305; J2704; J7120

== ENCOUNTER 2025-01-17 12:29 | Emergency (ER) | payer BC, SELFPAY ==
--- NOTE | ~2025-01-17 | XR_ITS ---
Examination: XR chest 2V Clinical History: cough x1 week, new fever Comparison: None Technique: PA and Lateral Findings: Cardiomediastinal silhouette normal size and configuration. Trace right basilar streaky opacity. No acute bony abnormality. IMPRESSION: 1. Trace right basilar pneumonitis. Reviewed, dictated and finalized at location R.
[2025-01-17 12:40] VITALS: BP 134/85; PULSE 89; RESP 16; TEMP 36.6; O2SAT 98
--- NOTE | 2025-01-17 13:06 | ED_ITS ---
HPI - URI/Sore Throat General Chief Complaint: Upper Respiratory Infection Stated Complaint: cough, fever Time Seen by Provider: 01/17/25 13:01 Source: patient and RN notes reviewed Mode of arrival: ambulatory Limitations: no limitations History of Present Illness HPI Narrative: 59-year-old female patient presents today with complaints of a one-week history of cough that is worse at night and a 3 day history of fever with a T-max of 100.4?. Denies shortness of breath or any additional upper respiratory symptoms to include congestion, rhinorrhea, sore throat. She has tried Tylenol and Robitussin with mild relief. She is a nonsmoker. No history of asthma or COPD. Related Data Allergies Allergy/AdvReac Type Severity Reaction Status Date / Time No Known Allergies Allergy Verified 01/17/25 12:42 [facility] Past Medical History Medical History Prediabetes History of colon polyps Dyslipidemia Surgical History Surgical History History of left breast biopsy benign History of vaginal delivery x2 - 1987, 1990 History of appendectomy (~1986) Family History Family History Other Hypertension Social History Social History Smoking status: Never smoker Alcohol intake: current Alcohol use details: OCCASIONALLY Substance use: never Substance use type: does not use Do You Feel Safe in your Home?: Yes Living arrangements: with family Occupation/Education: unemployed Gender identity (if verbalized by the patient): Female Spiritual care concerns: No Agree to blood products: Yes Comments At time of signature, I have reviewed and agree with nursing past medical, yahir gical, social and family history unless otherwise noted. Please see nursing chart for further information. There is no relevant family history pertinent to the presenting complaint Exam Narrative: GENERAL: Well-appearing, well-nourished, and in no acute distress. HEAD: Normocephalic, atraumatic. EYES: EOMI. No redness or drainage. Conjunctivae normal. ENT: Mucous membranes pink and moist. Nares clear. No rhinorrhea. TMs normal bilaterally. Throat normal. Uvula midline. NECK: Normal AROM. Supple. No lymphadenopathy. CHEST: No respiratory distress. Clear to auscultation. HEART: Regular rate and rhythm. No murmur appreciated. EXTREMITIES: Normal range of motion. No edema. SKIN: Warm, dry, no rash. Capillary refill normal. Normal skin turgor. NEURO: No focal deficits. Alert and oriented x3. Gait steady. PSYCH: Normal affect. No signs of depression or anxiety. Course Course Level of Care: Express Care Visit Vital Signs Vital signs: Vital Signs Temperature 98 F 01/17/25 12:40 Pulse Rate 89 01/17/25 12:40 Respiratory Rate 16 01/17/25 12:40 Blood Pressure 134/85 01/17/25 12:40 Pulse Oximetry 98 01/17/25 12:40 Temperature 98 F 01/17/25 12:40 Pulse Rate 89 01/17/25 12:40 Respiratory Rate 16 01/17/25 12:40 Blood Pressure 134/85 01/17/25 12:40 Pulse Oximetry 98 01/17/25 12:40 Reviewed MDM - URI/Sore Throat MDM Narrative Medical decision making narrative: 59-year-old female patient presents today with complaints of a one-week history of cough that is worse at night and a 3 day history of fever with a T-max of 100.4?. Patient's exam is normal. Chest xray shows trace right basilar pneumonitis. Based on patient's [place] of illness and new fever with perisistent cough and chest xray findings, will treat for pneumonia with Augmentin. Patient agrees with plan. VSS. Anticipatory guidance and ED precautions given. Differential Diagnosis Differential diagnosis: Likely upper respiratory infection, viral infection, bronchitis and other (Pneumonia) Imaging Data Radiologist's impression: ITS Impressions Chest X-Ray 01/17/25 13:26 IMPRESSION: 1. Trace right basilar pneumonitis. Critical Care Time Critical Care Time Critical Care Time: No Discharge Plan Discharge Clinical Impression: Pneumonia Qualifiers: Pneumonia type: due to unspecified organism Laterality: right Lung location: lower lobe of lung Qualified Code(s): J18.9 - Pneumonia, unspecified organism Patient Disposition: Home Condition: Stable Instructions: Antibiotic Form, Community Acquired Pneumonia (DC) Additional Instructions: Your x-ray shows very minor pneumonia in the right side of your lung. Please take the Augmentin as prescribed. Continue OTC medication as needed. Follow-up with your PCP in 1 week if symptoms persist. As discussed, please go to the ER immediately if symptoms worsen. Patient Language: Stateless Prescriptions: New amoxicillin-pot clavulanate 875-125 mg tablet 1 tablet PO Q12H 5 Days Qty: 10 0RF No Action cholecalciferol (vitamin D3) 50 mcg (2,000 unit) tablet 50 mcg PO DAILY Qty: 90 2RF atorvastatin [Lipitor] 20 mg tablet 20 mg PO QHS Qty: 90 3RF Follow-up/Referrals: Josefa Chau MD [Primary Care Provider, Family Practice] Time of Disposition: 13:42
== END 2025-01-17 13:48 | disposition home or self-care (01) ==
PROVIDERS: Emergency Provider Nurse Practitioner; PCP Family Medicine
DX: J18.9 Pneumonia, unspecified organism (principal); R73.03 Prediabetes; E78.5 Hyperlipidemia, unspecified
CPT/HCPCS: 71046; 99213; G0463